=== PATIENT | male | born 1955 | race African-American/Black ===

== ENCOUNTER 2019-03-16 20:18 | Inpatient (IN) | payer MEDICAID, OTHER ==
[~2019-03-16] VITALS: Ht 175.3 cm; Wt 62.1 kg
--- NOTE | 2019-03-16 21:02 | NUR ---
ED Nurse Note: Patient presents with complaints of headache and weakness, pain level 8-9/10. patient is calm, appears relaxed and vital signs are stable and documented. blood drawn and sent to lab. Will continue to monitor.
[2019-03-16 21:07] VITALS: BP 177/56
--- NOTE | 2019-03-16 21:07 | NUR ---
ED Nurse Note: Patient went down for CT.
--- NOTE | 2019-03-16 21:08 | Emergency Room Report ---
History of Present Illness General Chief Complaint: Generalized Weakness Source: Patient Present Illness HPI Patient is a 63-year-old male presented after increased generalized weakness. Patient reports having increased diarrhea over the past few days. He reports having increased bilateral lower extremity weakness. He denies any bloody stools. He states that he has been having normal urination. He states that he feels weak all over for the past 2 to 3 days. He denies any fever. He had not been having any severe headache. He denies prior medical history other than hypertension. Allergies: Coded Allergies: No Known Allergies (Unverified , 03/16/19) Patient History Past Medical History: see triage record Reviewed Nursing Documentation: PMH: Agreed; PSxH: Agreed Nursing Documentation-PMH Hx Hypertension: Yes Review of Systems All Other Systems: negative except mentioned in HPI Physical Exam Vital Signs Date Time Temp Pulse Resp B/P (MAP) Pulse Ox O2 Delivery O2 Flow Rate FiO2 03/16/19 20:24 97.9 84 16 172/107 (128) 97 Room Air Sp02 EP Interpretation: reviewed, normal General Appearance: normal inspection, well appearing, no apparent distress, alert, GCS 15 Head: atraumatic ENT: normal ENT inspection, hearing grossly normal, normal voice Neck: normal inspection, full range of motion, supple, no bony tend Respiratory: normal inspection, lungs clear, normal breath sounds, no respiratory distress, no retraction, no wheezing Cardiovascular #1: regular rate, rhythm, no edema Gastrointestinal: normal inspection, normal bowel sounds, non tender, soft, no guarding, no hernia Genitourinary: no CVA tenderness Musculoskeletal: normal inspection, back normal, normal range of motion Neurologic: normal inspection, alert, oriented x3, responsive, 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 Differential diagnosis include was not limited to electrolyte abnormality, CVA, myasthenia gravis, Guillain-Ren among others. Because of complexity of patient's case laboratory testing and imaging studies were ordered. CT imaging of the head read by radiology showed post surgical changes without evident fracture or intracranial hemorrhage. Patient's electrolytes were noted be unremarkable. Patient was noted to have some diffuse weakness. EKG interpreted by me showed normal sinus rhythm without acute ST or T wave changes. Patient was started on IV hydration.Dr. Alton Brady was contacted for inpatient management due to panel physician Laboratory Tests Test 03/16/19 21:00 03/16/19 22:00 03/17/19 05:10 White Blood Count 7.5 K/UL (4.8-10.8) Red Blood Count 4.70 M/UL (4.70-6.10) Hemoglobin 12.7 G/DL (14.2-18.0) L Hematocrit 40.1 % (42.0-52.0) L Mean Corpuscular Volume 85 FL (80-99) Mean Corpuscular Hemoglobin 27.0 PG (27.0-31.0) Mean Corpuscular Hemoglobin Concent 31.7 G/DL (32.0-36.0) L Red Cell Distribution Width 13.4 % (11.6-14.8) Platelet Count 271 K/UL (150-450) Mean Platelet Volume 6.3 FL (6.5-10.1) L Neutrophils (%) (Auto) 53.7 % (45.0-75.0) Lymphocytes (%) (Auto) 34.9 % (20.0-45.0) Monocytes (%) (Auto) 7.9 % (1.0-10.0) Eosinophils (%) (Auto) 2.2 % (0.0-3.0) Basophils (%) (Auto) 1.3 % (0.0-2.0) Sodium Level 144 MMOL/L (136-145) 142 MMOL/L (136-145) Potassium Level 3.6 MMOL/L (3.5-5.1) 3.3 MMOL/L (3.5-5.1) L Chloride Level 108 MMOL/L (98-107) H 108 MMOL/L (98-107) H Carbon Dioxide Level 29 MMOL/L (21-32) 28 MMOL/L (21-32) Anion Gap 7 mmol/L (5-15) 6 mmol/L (5-15) Blood Urea Nitrogen 21 mg/dL (7-18) H 15 mg/dL (7-18) Creatinine 1.3 MG/DL (0.55-1.30) 1.0 MG/DL (0.55-1.30) Estimate Glomerular Filtration Rate > 60 mL/min (>60) > 60 mL/min (>60) Glucose Level 112 MG/DL (74-106) H 91 MG/DL (74-106) Calcium Level 9.4 MG/DL (8.5-10.1) 8.5 MG/DL (8.5-10.1) Total Bilirubin 0.3 MG/DL (0.2-1.0) 0.5 MG/DL (0.2-1.0) Aspartate Amino Transferase (AST) 22 U/L (15-37) 18 U/L (15-37) Alanine Aminotransferase (ALT) 22 U/L (12-78) 18 U/L (12-78) Alkaline Phosphatase 75 U/L (46-116) 65 U/L (46-116) Troponin I 0.000 ng/mL (0.000-0.056) Total Protein 6.7 G/DL (6.4-8.2) 5.8 G/DL (6.4-8.2) L Albumin 4.1 G/DL (3.4-5.0) 3.5 G/DL (3.4-5.0) Globulin 2.6 g/dL 2.3 g/dL Albumin/Globulin Ratio 1.6 (1.0-2.7) 1.5 (1.0-2.7) Lipase 421 U/L (73-393) H Thyroid Stimulating Hormone (TSH) 1.098 uiU/mL (0.358-3.740) Urine Color Pale yellow Urine Appearance Clear Urine pH 6.5 (4.5-8.0) Urine Specific Unity 1.015 (1.005-1.035) Urine Protein Negative (NEGATIVE) Urine Glucose (UA) Negative (NEGATIVE) Urine Ketones Negative (NEGATIVE) Urine Blood Negative (NEGATIVE) Urine Nitrite Negative (NEGATIVE) Urine Bilirubin Negative (NEGATIVE) Urine Urobilinogen Normal MG/DL (0.0-1.0) Urine Leukocyte Esterase Negative (NEGATIVE) Urine RBC 0-2 /HPF (0 - 0) H Urine WBC 0 /HPF (0 - 0) Urine Squamous Epithelial Cells Occasional /LPF Urine Bacteria Occasional /HPF (NONE) Hemoglobin A1c 6.1 % (4.3-6.0) H Magnesium Level 1.9 MG/DL (1.8-2.4) Triglycerides Level 65 MG/DL (30-150) Cholesterol Level 188 MG/DL (< 200) LDL Cholesterol 118 mg/dL (<100) H HDL Cholesterol 55 MG/DL (40-60) Cholesterol/HDL Ratio 3.4 (3.3-4.4) Last Vital Signs Date Time Temp Pulse Resp B/P (MAP) Pulse Ox O2 Delivery O2 Flow Rate FiO2 03/16/19 20:24 97.9 84 16 172/107 (128) 97 Room Air Status: improved Disposition: ADMITTED INPATIENT Condition: Stable Referrals: [facility],REFERRING (PCP) Nitin Solis MD Mar 16, 2019 21:08
[2019-03-16 21:11] LABS: BASOPHILS % (AUTO) 1.3 % (0.0-2.0); EOSINOPHILS % (AUTO) 2.2 % (0.0-3.0); HEMATOCRIT 40.1 % (42.0-52.0); HEMOGLOBIN 12.7 G/DL (14.2-18.0); LYMPHOCYTES % (AUTO) 34.9 % (20.0-45.0); MEAN CORPUSCULAR VOLUME 85 FL (80-99); MONOCYTES % (AUTO) 7.9 % (1.0-10.0); NEUTROPHILS % (AUTO) 53.7 % (45.0-75.0); PLATELET COUNT 271 K/UL (150-450); RED CELL DISTRIBUTION WIDTH 13.4 % (11.6-14.8); WHITE BLOOD COUNT 7.5 K/UL (4.8-10.8)
[2019-03-16 21:22] LABS: ANION GAP 7 mmol/L (5-15); BLOOD UREA NITROGEN 21 mg/dL (7-18); CALCIUM 9.4 MG/DL (8.5-10.1); CARBON DIOXIDE 29 MMOL/L (21-32); CHLORIDE 108 MMOL/L (98-107); CREATININE 1.3 MG/DL (0.55-1.30); POTASSIUM 3.6 MMOL/L (3.5-5.1); SODIUM 144 MMOL/L (136-145)
[2019-03-16 21:35] LABS: ALANINE AMINOTRANSFERASE 22 U/L (12-78); ALBUMIN 4.1 G/DL (3.4-5.0); ALBUMIN/GLOBULIN RATIO 1.6 (1.0-2.7); ALKALINE PHOSPHATASE 75 U/L (46-116); ASPARTATE AMINO TRANSFERASE 22 U/L (15-37); BILIRUBIN,TOTAL 0.3 MG/DL (0.2-1.0)
--- NOTE | 2019-03-16 21:47 | Diagnostic Imaging Report ---
EXAM: CT Head Without Intravenous Contrast CLINICAL HISTORY: PAIN TECHNIQUE: Axial computed tomography images of the head/brain without intravenous contrast. CTDI is 70.4 mGy and DLP is 1397 mGy-cm. One or more of the following dose reduction techniques were used: automated exposure control, adjustment of the mA and/or kV according to patient size, use of iterative reconstruction technique. COMPARISON: No relevant prior studies available. FINDINGS: No intracranial hemorrhage, abnormal intra- or extra-axial collections or parenchymal lesions are seen. Postoperative changes noted right frontal medhat hole craniotomy. There are involutional changes with prominence of the sulci, basal cisterns and ventricles. Scattered white matter hypoattenuations are present, likely from small vessel disease. The saldivar-white differentiation is preserved. No evidence of mass effect, midline shift, or edema. The osseous structures are unremarkable. The visualized portions of the paranasal sinuses are clear. Mastoids IMPRESSION: 1. No acute intracranial process. .
--- NOTE | 2019-03-16 21:48 | NUR ---
ED Nurse Note: Patient is relaxing with no complaints, attempting to provide a urine sample.
[2019-03-16 22:21] LABS: APPEARANCE,URINE CLEAR; BILIRUBIN, URINE NEGATIVE (NEGATIVE); COLOR,URINE PALE YELLOW; GLUCOSE, URINE (UA) NEGATIVE (NEGATIVE); KETONES,URINE NEGATIVE (NEGATIVE); LEUKOCYTE ESTERASE ,URINE NEGATIVE (NEGATIVE); NITRITE,URINE NEGATIVE (NEGATIVE); PH,URINE 6.5 (4.5-8.0); PROTEIN,URINE NEGATIVE (NEGATIVE); UROBILINOGEN,URINE NORMAL MG/DL (0.0-1.0)
--- NOTE | 2019-03-16 22:50 | NUR ---
NURSE NOTES: Received a report from DARLEEN Elizabeth. Awaiting for pt's arrival.
--- NOTE | 2019-03-16 22:52 | NUR ---
ED Nurse Note: Patient tolerating medication and fluid well. will continue to monitor.
[2019-03-16 22:57] VITALS: BP 160/106
--- NOTE | 2019-03-16 22:59 | NUR ---
ED Nurse Note: Called and gave report to Suly RN. Belonging sheet done, patient will be transported to floor in 10 minutes to allow for Suly RN to prepare the room, per request.
--- NOTE | 2019-03-16 23:15 | NUR ---
ED Nurse Note: Patient transported to floor by [facility] without incident.
--- NOTE | 2019-03-16 23:15 | NUR ---
NURSE NOTES: Pt arrived in the unit. AAOX4. Able to make needs known. On room air. C/o headache, rated it 8/10. Will give pain med once there's an order. IV site is patent and intact. Skin is intact. Belongings checked and signed by the patient. Bed in lowest position. Bed alarm is on. Call light within reach. Will continue to monitor.
[2019-03-16 23:30] VITALS: BP 186/137
[2019-03-16] MEDS ORDERED: Morphine Sulfate 4mg/ml Inj (IV USE ONLY) IVP PRN (23:30)
[2019-03-16] MEDS ORDERED: Morphine Sulfate 2mg/ml Inj(IV/IM USE ONLY) IVP PRN (23:30)
[2019-03-16] MEDS ORDERED: Zolpidem 5mg tab ORAL PRN (23:30)
[2019-03-16] MEDS: metroNIDAZOLE 500mg tab ORAL SCH (23:52)
[2019-03-16] MEDS: Ciprofloxacin 500mg tab ORAL SCH (23:52)
[2019-03-17] VITALS (9 sets, daily range): BP systolic 140–167; BP diastolic 97–112
[2019-03-17] MEDS: 1/2NS w/KCl 20mEq 1000ml 1,000 ML IV SCH ×3 (00:19→18:27)
[2019-03-17] MEDS ORDERED: NKM (01:46)
[2019-03-17] MEDS: metroNIDAZOLE 500mg tab ORAL SCH ×3 (05:42→21:39)
--- NOTE | 2019-03-17 07:00 | NUR ---
HAND-OFF: Report given to Darrius Nichols RN.
[2019-03-17 07:43] LABS: ALANINE AMINOTRANSFERASE 18 U/L (12-78); ALBUMIN 3.5 G/DL (3.4-5.0); ALBUMIN/GLOBULIN RATIO 1.5 (1.0-2.7); ALKALINE PHOSPHATASE 65 U/L (46-116); ANION GAP 6 mmol/L (5-15); ASPARTATE AMINO TRANSFERASE 18 U/L (15-37); BILIRUBIN,TOTAL 0.5 MG/DL (0.2-1.0); BLOOD UREA NITROGEN 15 mg/dL (7-18); CALCIUM 8.5 MG/DL (8.5-10.1); CARBON DIOXIDE 28 MMOL/L (21-32); CHLORIDE 108 MMOL/L (98-107); CHOLESTEROL 188 MG/DL (< 200); HDL CHOLESTEROL 55 MG/DL (40-60); POTASSIUM 3.3 MMOL/L (3.5-5.1); SODIUM 142 MMOL/L (136-145); TRIGLYCERIDES 65 MG/DL (30-150)
[2019-03-17] MEDS: Ciprofloxacin 500mg tab ORAL SCH ×2 (08:16→20:37)
--- NOTE | 2019-03-17 10:00 | NUR ---
NURSE NOTES: PT AXOX3, RAMBLING SPEECH. AMBULATORY WITH STEADY GAIT. PT EDUCATED ON FALL PRECAUTIONS AND HOW TO USE CALL LIGHT FOR ASSISTANCE. PT VERBALIZED UNDERSTANDING. CALL LIGHT WITHIN REACH. WILL CONTINUE TO MONITOR.
--- NOTE | 2019-03-17 14:06 | NUR ---
NURSE NOTES: DR. Osmin BROWN AT BEDSIDE AND MADE AWARE OF PT'S ELEVATED BP. NO NEW ORDERS.
--- NOTE | 2019-03-17 14:27 | History & Physical ---
History and Physical History & Physicial HP dictated #[id number] Alton Brady MD Mar 17, 2019 14:27
--- NOTE | 2019-03-17 18:45 | History and Physical Report ---
DATE OF ADMISSION: 03/16/2019 CHIEF COMPLAINT: The patient was brought in for increased generalized weakness. HISTORY OF PRESENT ILLNESS: This is a 63-year-old, male, who is a poor historian. Apparently he came to the ER for increased generalized weakness and also he had some diarrhea although the nurse tells me that he has not had any bowel movements since admission. The patient was admitted for further workup. PAST MEDICAL HISTORY: Remarkable for history of hypertension. MEDICATIONS: Reviewed in the EMR. SOCIAL HISTORY: No history of smoking or alcohol abuse. ALLERGIES: No known drug allergies. REVIEW OF SYSTEMS: Noncontributory. PHYSICAL EXAMINATION: GENERAL: The patient is a 63-year-old male, in no acute distress. VITAL SIGNS: Blood pressure 151/105, pulse 57, respiratory rate 16, temperature 98.1. HEENT: Bertrand conjunctivae. Anicteric sclerae. NECK: Supple . LUNGS: Clear to auscultation. HEART: S1 and S2 without murmurs or rubs. ABDOMEN: Soft, nontender. EXTREMITIES: No cyanosis or edema. LABORATORY FINDINGS: CBC shows WBC of 7.5, hematocrit 40.1, hemoglobin is 12.7, platelets 271,000. Chemistry panel shows serum sodium of 142, potassium 3.3, chloride 108, CO2 of 28, BUN 17, creatinine 1. UA is negative. Hemoglobin A1c 6.1. ASSESSMENT: This is a 63-year-old male, who was admitted with generalized weakness, reported history of diarrhea, possible diagnosis of acute gastroenteritis and volume depletion. The patient is also hypokalemic which goes along with the history of diarrhea. PLAN: The patient will be hydrated with IV fluids with initial potassium. Physical therapy will be ordered. The patient was started on empiric antibiotics. Stool for C. difficile will be checked and further adjustment will be made in the patient's regimen. Alton Brady M.D. DR: Dinesh JOB#: [id number] CC:
--- NOTE | 2019-03-17 19:03 | NUR ---
HAND-OFF: Report given to Wendy CARMONA RN.
--- NOTE | 2019-03-17 19:30 | NUR ---
NURSE NOTES: PREVIOUS AM NURSE, MAVIS, ENDORSED THAT DR. Jessica BROWN WAS MADE AWARE OF PATIENT'S HIGH SBP AND DBP WHEN MD CAME TO VISIT THE PATIENT, BUT STILL NO NEW ORDERS WERE GIVEN. WILL CONTINUE TO MONITOR.
--- NOTE | 2019-03-17 19:36 | NUR ---
NURSE NOTES: Received report from DARELEN Brenner. Patient is on the bed. Patient is alert, awake, and verbally responsive to make needs known. Patient is breathing unlabored and evenly without signs of distress, discomfort, or SOB noted. No pain is noted at this time. Patient's bed is placed at the lowest. Call light placed within reach for any assistance needed. Will continue to monitor and provide care as ordered.
--- NOTE | 2019-03-17 23:01 | NUR ---
NURSE NOTES: Patient's left AC 22g IV dressing was falling apart causing catheter to be in uncomfortable position for the patient. Dressing change was provided. Old dressing was removed and new Tegaderm was placed. Skin around the IV site was warm to touch, dry, without redness or signs of infiltration. IV is patent with good blood return and no resistance while flushing. Disconnected IV fluid was reconnected and running as ordered. Maintained sterility of the connectors. Explained procedure before performing and patient verbalized comfort after the dressing change. Call light was placed within reach and encouraged to press whenever assistance is needed.
[2019-03-18] VITALS: BP 169/106
--- NOTE | 2019-03-18 00:31 | NUR ---
NURSE NOTES: Found patient pulled out the IV during the hourly round. Patient pulled out the LAC 22g IV. Patient does not know why he pulled it out and said "I don't know what I did, it was stupid". Skin around the previous IV site was clean and dry. Explained patient that new IV has to be inserted for ordered fluid. Patient acknowledged and confirmed okay. Inserted new 22g IV on the patient's left forearm. IV site intact, dry, and clean. IV is patent with good blood return and no resistance when flushing. Iv site is covered with the kerlix for protection. Patient tolerated the procedure well. Ordered IV fluid is reconnected and running as ordered. Call light placed within reach and bed set to lowest level. Will continue to monitor.
[2019-03-18 04:00] VITALS: BP 159/98
[2019-03-18] MEDS: 1/2NS w/KCl 20mEq 1000ml 1,000 ML IV SCH ×3 (04:49→23:59)
--- NOTE | 2019-03-18 04:54 | NUR ---
NURSE NOTES: Patient is confused about the IV. Patient pulls it out when he goes to the restroom. Patient verbalized understanding when re-educated to call the call light when he needs assistance. Patient pulled out the new inserted IV. No trauma noted on the skin. Explained patient about the need for new IV insertion. Patient verbalized understanding. New IV has been inserted. 22 g IV on the left upper arm running 1/2 NS with KCL 20 mEq at 100 cc/hr. New IV site is intact, patent, and clean. Applied Kerlix to protect the IV site. Patient tolerated the procedure well. Reminded patient multiple times to call the call light and wait for help when going to the restroom. Patient verbalized understanding. Call light placed within reach. Bed placed at the lowest level with HOB elevated for patient safety. Will continue to monitor.
[2019-03-18] MEDS: metroNIDAZOLE 500mg tab ORAL SCH ×3 (05:52→21:22)
--- NOTE | 2019-03-18 06:41 | NUR ---
NURSE NOTES: Patient attempted to make a bowel movement, but patient did not have one during current shift. No diarrhea noted. Was not able to collect a stool sample for c-diff screening. Will follow up. Will continue to monitor.
--- NOTE | 2019-03-18 07:00 | NUR ---
Nurse Note Handoff received from DARLEEN Leal.
--- NOTE | 2019-03-18 07:10 | NUR ---
NURSE NOTES: Patient is now confused, only alert to name and year. Patient states he doesn't know where he is and how he got to the hospital. Patient forgot having a conversation with the nurse. Nurse reoriented patient back to room. Patient was moved closer to nursing station room 412-1. Belongings checked. Nurse left message for Dr. Jessica Brady, awaiting response. Will endorse.
--- NOTE | 2019-03-18 07:30 | NUR ---
HAND-OFF: Report given to DARLEEN Cardona and DARLEEN Hua. Patient in stable condition.
[2019-03-18 08:00] VITALS: BP 160/85
[2019-03-18 08:07] LABS: ANION GAP 11 mmol/L (5-15); BLOOD UREA NITROGEN 9 mg/dL (7-18); CALCIUM 9.4 MG/DL (8.5-10.1); CARBON DIOXIDE 24 MMOL/L (21-32); CHLORIDE 106 MMOL/L (98-107); CREATININE 1.1 MG/DL (0.55-1.30); PHOSPHORUS 3.1 MG/DL (2.5-4.9); POTASSIUM 3.7 MMOL/L (3.5-5.1); SODIUM 141 MMOL/L (136-145)
[2019-03-18] MEDS: Ciprofloxacin 500mg tab ORAL SCH ×2 (08:28→21:22)
[2019-03-18] MEDS: LORazepam Inj 2mg/ml 1ml IM SCH ×4 (08:30→09:08)
[2019-03-18] MEDS: Haloperidol 5mg/ml Inj IM SCH ×2 (08:30→08:45)
--- NOTE | 2019-03-18 08:30 | NUR ---
NURSE NOTES: one time scheduled Ativan and Haloperidol scheduled for 8:30 were not administered due to mixing of Ativan and Haloperidol in the same syringe, medications were therefore wasted and witnessed by Dulce MOREJON and DARLEEN Marina.
[2019-03-18] MEDS ORDERED: Haloperidol 5mg/ml Inj IM SCH (09:00)
--- NOTE | 2019-03-18 10:09 | NUR ---
NURSE NOTES: One time order for Ativan and Haldol scheduled for 9AM were not given. Patients brother arrived to the hospital and was able to explain to the patient the benefits of staying in the hospital. The patient is now fully cooperative and did not require the Ativan or Haldol to be administered.
[2019-03-18 11:20] VITALS: BP 162/89
--- NOTE | 2019-03-18 12:40 | NUR ---
NURSE NOTES: Spoke with Dr. Brady regarding HTN and received NNO. will continue to monitor
--- NOTE | 2019-03-18 13:41 | General Progress Note ---
Assessment/Plan Problem List: (1) Acute gastroenteritis ICD Codes: K52.9 - Noninfective gastroenteritis and colitis, unspecified SNOMED: 19228329 (2) Episode of generalized weakness ICD Codes: R53.1 - Weakness SNOMED: 09702697 Assessment/Plan: IVF PRN sedation follow labs Subjective Allergies: Coded Allergies: No Known Allergies (Unverified , 03/16/19) Subjective feels better Objective Last 24 Hour Vital Signs Date Time Temp Pulse Resp B/P (MAP) Pulse Ox O2 Delivery O2 Flow Rate FiO2 03/18/19 11:22 98.0 03/18/19 11:20 98.0 83 18 162/89 (113) 96 03/18/19 09:00 Room Air 03/18/19 08:00 98.2 77 18 160/85 (110) 97 03/18/19 04:00 98.4 63 18 159/98 (118) 97 03/18/19 00:00 97.9 65 18 169/106 (127) 97 03/17/19 21:00 Room Air 03/17/19 20:00 97.6 64 16 157/105 (122) 98 03/17/19 15:46 98.2 62 17 161/104 (123) 98 Intake and Output 03/17/19 03/18/19 19:00 07:00 Intake Total 3100 ml 1800 ml Balance 3100 ml 1800 ml Intake Oral 2000 ml 800 ml IV Total 1100 ml 1000 ml # Voids 3 3 Laboratory Tests 03/18/19 05:26: Sodium Level 141, Potassium Level 3.7, Chloride Level 106, Carbon Dioxide Level 24, Anion Gap 11, Blood Urea Nitrogen 9, Creatinine 1.1, Estimat Glomerular Filtration Rate > 60, Glucose Level 97, Calcium Level 9.4, Phosphorus Level 3.1 , Magnesium Level 1.9 Height (Feet): 5 Height (Inches): 9.00 Weight (Pounds): 150 Cardiovascular: normal rate Respiratory/Chest: lungs clear Edema: no edema noted Generalized Alton Brady MD Mar 18, 2019 13:41
[2019-03-18 16:00] VITALS: BP 138/93
--- NOTE | 2019-03-18 17:14 | NUR ---
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 ACUTE GASTROENTERITIS VS: BP 172/107, P 84, T 97.8, RR 16, SpO2 97 H&H 12.7/40.1,BUN 21 K 3.3, A1c 6.1 IS:MAGNESIUIM SULFATE 100ml IVPB NS x 500ml IV ADMITTED TO MED/SURG DCP: RETURN HOME Addendum: 03/18/19 at 1720 by Arabella Salter LVN ABOVE REVIEW IS FOR 03/17
--- NOTE | 2019-03-18 17:20 | NUR ---
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 EPISODE OF GENERALIZED WEAKNESS VS: BP 169/106,P 65, T 98.0, RR 18, SpO2 96 IS:TYLENOL 20mg FLAGYL 500mg CIPROFLOXACIN 500mg MORPHINE SULFATE 2mg IVP MED/SURG STATUS
--- NOTE | 2019-03-18 19:34 | NUR ---
HAND-OFF: Report given to DARLEEN Lam.
--- NOTE | 2019-03-18 19:45 | NUR ---
NURSE NOTES: Received a report from DARLEEN Cardona. Pt is confused. He wanted to leave the hospital. Carole MOREJON explained to the pt that he needs to stay here to treat him. Pt agreed to stay and verbalized understanding. On room air. No c/o pain/discomfort. IV site is patent and intact. Bed in lowest position. Call light within reach. Will continue to monitor.
[2019-03-18 20:00] VITALS: BP 167/115
--- NOTE | 2019-03-18 21:30 | NUR ---
NURSE NOTES: Patient noted for elevated SBP above 160. MD made aware previously and no new order was given. Patient still shows elevated SBP above 160, but asymptomatic. Patient is breathing evenly and unlabored without any signs of distress. Patient is awake, verbally responsive, but still confused. No change in condition noted. Bed placed at the lowest with alarm, brake, and side rails up x 2 for safety measures. Call light placed within reach. Patient was reeducated and reinforced to press the call light whenever he needs any assistance. Urinal was provided to him because he attempts to pull out the IV whenever he goes to the restroom. Will monitor more frequently.
[2019-03-18] MEDS ORDERED: clonazePAM 0.5mg tab ORAL PRN (23:00)
[2019-03-19] VITALS (7 sets, daily range): BP systolic 155–192; BP diastolic 11–133
--- NOTE | 2019-03-19 00:45 | Consultation ---
DATE OF CONSULTATION: 03/18/2019 CONSULTING PHYSICIAN: Helen Ocampo M.D. HISTORY OF PRESENT ILLNESS: This is a 63-year-old black male with a history of multiple medical problems including hypertension and history of mental illness who has been admitted to the hospital due to increased generalized weakness. The patient was severely agitated this morning, attempted to leave against medical advice. He was disorganized and was unable to answer the questions appropriately. He received a shot for Haldol and Ativan; however, he calmed down and the shot was not given. During the evaluation, he was somewhat uncooperative. He knew where he was and knew the year; however, was unable to answer the question in a rational manner. We discussed with the patient and the patient agreed to remain in the hospital and Dr. Brady discharging him. PAST PSYCHIATRIC HISTORY: He denied any history of psychiatric illness, however he is a poor historian and unreliable. PAST MEDICAL HISTORY: Hypertension. ALLERGIES: No known drug allergies. SUBSTANCE ABUSE HISTORY: He denied any illicit drug use or alcohol. MENTAL STATUS EXAMINATION: The patient was alert, oriented times self and place. Mood was agitated. Affect was blunted, congruent with mood. Thought process is disorganized. Thought content, no suicidal or homicidal ideation. Memory was impaired. Insight and judgment non-existent. ASSESSMENT: [place] I Psychotic disorder, not otherwise specified. [place] II Deferred. [place] III As above. [place] IV Low. [place] V 20. PLAN: 1. The patient will be started on Seroquel 100 mg at bedtime. 2. Ativan p.r.n. 3. The patient may not leave against medical advice as he lacks capacity. Helen Ocampo M.D. DR: TERESA JOB#: [id number] CC:
--- NOTE | 2019-03-19 05:10 | NUR ---
NURSE NOTES: Patient pulled out the IV on left upper arm. Skin is intact. Patient does not know why he pulled it out. Explained patient that a new IV needs to be inserted to run a ordered fluid. Patient confirmed that he understands and said okay. Inserted new 22 g IV on left forearm. IV site intact, dry, and clean. IV site patent with good blood return and no resistance when flushing. Reeducated and reinforced patient not to pull out the IV and why IV site is needed at this time. New IV site currently running fluids as ordered. Patient confirmed understanding verbally. Patient tolerated the procedure well. Patient breathing unlabored and evenly without signs of distress at this time. Patient did not complained of pain nor signs of pain noted at this time. Call light placed within reach. Bed on lowest level with alarm, brake, and side rails up x 2 for safety measure. Reinforced patient to press the call light for any assistance needed. Will continue to monitor and provide care as ordered.
[2019-03-19] MEDS: metroNIDAZOLE 500mg tab ORAL SCH ×3 (05:26→21:16)
--- NOTE | 2019-03-19 07:05 | NUR ---
HAND-OFF: Report given to DARLEEN Loera.
--- NOTE | 2019-03-19 07:58 | NUR ---
NURSE NOTES: Patient is alert and oriented,respirations are unlabored.IV fluids infusing as ordered.Patient sitting up in bed ,ate breakfast.Bed alrm is on,call light within reach.
[2019-03-19] MEDS: Ciprofloxacin 500mg tab ORAL SCH ×2 (08:54→21:16)
--- NOTE | 2019-03-19 09:48 | NUR ---
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 UNCONTROLLED HYPERTENSION VS: BP 163/120, P 96, T 97.0, RR 20, SpO2 98 IS:PEPCID 20mg CIPROFLOXACIN 500mg FLAGYL 500mg MED/SURG STATUS
--- NOTE | 2019-03-19 11:54 | NUR ---
INSURANCE UPDATED CLINICALS HAVE BEEN FAXED TO: [facility] PLEASE FAX THE REVIEW AND CLINICAL TO [facility]: [phone] PH: [phone]
[2019-03-19] MEDS: 1/2NS w/KCl 20mEq 1000ml 1,000 ML IV SCH (12:56)
--- NOTE | 2019-03-19 16:45 | NUR ---
NURSE NOTES: Patient pulled out IV and stated he is ready to go home.Patient blood pressure 174/117,notified Dr Jessica Hair with order received to start patient on Amlodipine 5mg po daily . Teaching given to patient on taking BP medication and monitoring his blood pressure,patient then agree to stay,DR Brady will see patient tomorrow.
--- NOTE | 2019-03-19 17:45 | Progress Note ---
DATE: 03/19/2019 SUBJECTIVE: The patient is calmer, more directable, still does not know the date. Poor insight and judgment into his mental condition. The patient is not attempting to leave AMA and following the staff's direction. MENTAL STATUS EXAMINATION: The patient is alert, oriented times self, place, and situation. Mood is dysphoric. Affect is constricted. Congruent with mood. Thought process is concrete. Thought content, no suicidal or homicidal ideation. ASSESSMENT: 1. The patient will be continued with current medication. 2. The patient may not leave AMA. Helen Ocampo M.D. DR: Ambrose JOB#: [id number] CC:
--- NOTE | 2019-03-19 19:39 | NUR ---
NURSE NOTES: Received report from DARLEEN Loera. Patient is awake, verbally responsive, with confusion. Patient pulled out his IV. Skin intact. Patient is breathing unlabored and evenly on room air without signs of distress noted. No signs of pain noted at this time. Patient's bed is placed at the lowest level with brakes and side rails up x 2 for safety. Call light placed within reach and reinforced to press whenever assistance is needed. Will continue to monitor and provide care as ordered.
--- NOTE | 2019-03-19 19:42 | NUR ---
HAND-OFF: Report given to NABEEL PANG RN.
--- NOTE | 2019-03-19 20:37 | NUR ---
NURSE NOTES: Dr. Brady came to see the patient. Dr. Brady discontinued the fluid order 1/2 NS with 20 mEq KCL 100 cc/hr and talked with patient about possible discharge plan for tomorrow. No IV site access, MD aware. Patient has high blood pressure 192/133, MD made aware with no new orders. Patient is asymptomatic, breathing evenly and unlabored, with no signs of distress. Will continue to monitor and provide care as ordered.
--- NOTE | 2019-03-19 22:16 | General Progress Note ---
Assessment/Plan Problem List: (1) Acute gastroenteritis ICD Codes: K52.9 - Noninfective gastroenteritis and colitis, unspecified SNOMED: 88416833 (2) Episode of generalized weakness ICD Codes: R53.1 - Weakness SNOMED: 85996086 Assessment/Plan: DC IVF PT Dc tomorrow Subjective Allergies: Coded Allergies: No Known Allergies (Unverified , 03/16/19) Subjective feels better Objective Last 24 Hour Vital Signs Date Time Temp Pulse Resp B/P (MAP) Pulse Ox O2 Delivery O2 Flow Rate FiO2 03/19/19 21:00 Room Air 03/19/19 20:00 97.7 83 17 192/133 (152) 97 03/19/19 16:58 105 174/117 03/19/19 16:09 98.0 95 20 165/112 (129) 99 03/19/19 12:06 98.4 68 20 168/109 (128) 98 03/19/19 09:49 Room Air 03/19/19 08:49 72 155/111 (126) 03/19/19 08:03 98.2 88 20 163/120 (134) 98 03/19/19 04:00 97.0 96 20 161/110 (127) 100 03/19/19 00:00 97.8 70 18 160/100 (120) 99 Intake and Output 03/18/19 03/19/19 19:00 07:00 Intake Total 1380 ml 1976 ml Output Total 1025 ml Balance 1380 ml 951 ml Intake Oral 680 ml 1100 ml IV Total 700 ml 876 ml Output Urine Total 1025 ml # Voids 3 Height (Feet): 5 Height (Inches): 9.00 Weight (Pounds): 150 Cardiovascular: normal rate Respiratory/Chest: lungs clear Edema: no edema noted Alton Posada MD Mar 19, 2019 22:16
--- NOTE | 2019-03-19 23:25 | NUR ---
NURSE NOTES: Patient became confused and anxious when he was awake to go to the restroom. He started packing up his belongs such as paperworks that he has in a belonging bag. He said this is not the right place for him and that he has to go home right now. After multiple attempts to calm the patient down through talk therapy, patient wanted medication to calm him down and that he still felt that this was not the right place to be. Prescribed medication for anxiety was given and the purpose of the medication was explained to the patient. Patient took the medication and agreed to go back to bed for now. Call light was left within reach for patient to press whenever he needed any help. Bed was placed at the lowest with alarm, brakes, and side rails up x2 for safety. Will continue to monitor and provide care as ordered.
[2019-03-20] VITALS: BP 127/88
[2019-03-20 04:00] VITALS: BP 128/83
[2019-03-20] MEDS: metroNIDAZOLE 500mg tab ORAL SCH (05:39)
--- NOTE | 2019-03-20 07:11 | NUR ---
HAND-OFF: Report given to DARLEEN Loera. Patient in stable condition.
--- NOTE | 2019-03-20 07:35 | NUR ---
NURSE NOTES: Patient is awake and alert, up and doing AM care.respirations unlabored.Will monitor.
[2019-03-20 08:00] VITALS: BP 133/92
[2019-03-20] MEDS: Ciprofloxacin 500mg tab ORAL SCH (08:16)
--- NOTE | 2019-03-20 08:42 | NUR ---
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 GENERALIZED WEAKNESS VS: BP 133/92, P 18, T 97.5, RR 18, SpO2 97 IS:PEPCID 20mg CIPROFLOXACIN 500mg NORVASC 5mg FLAGYL 500mg MED/SURG STATUS
--- NOTE | 2019-03-20 09:29 | NUR ---
INSURANCE UPDATED CLINICALS HAVE BEEN FAXED TO: [facility] PLEASE FAX THE REVIEW AND CLINICAL TO FX: [phone] PH: [phone]
[2019-03-20 12:00] VITALS: BP 148/106
[2019-03-20] MEDS ORDERED: NORVASC5 MG ORAL (12:06)
--- NOTE | 2019-03-20 12:09 | General Progress Note ---
Assessment/Plan Problem List: (1) Acute gastroenteritis ICD Codes: K52.9 - Noninfective gastroenteritis and colitis, unspecified SNOMED: 94907238 (2) Episode of generalized weakness ICD Codes: R53.1 - Weakness SNOMED: [id number] Assessment/Plan: Al home Subjective Allergies: Coded Allergies: No Known Allergies (Unverified , 03/16/19) Subjective ok Objective Last 24 Hour Vital Signs Date Time Temp Pulse Resp B/P (MAP) Pulse Ox O2 Delivery O2 Flow Rate FiO2 03/20/19 09:00 Room Air 03/20/19 08:16 98 133/92 03/20/19 08:00 97.5 98 18 133/92 (106) 99 03/20/19 04:00 98.2 72 16 128/83 (98) 99 03/20/19 00:00 98.3 98 18 127/88 (101) 97 03/19/19 21:00 Room Air 03/19/19 20:00 97.7 83 17 192/133 (152) 97 03/19/19 16:58 105 174/117 03/19/19 16:09 98.0 95 20 165/112 (129) 99 Intake and Output 03/19/19 03/20/19 19:00 07:00 Intake Total 1080 ml 120 ml Output Total 1050 ml Balance 30 ml 120 ml Intake Oral 480 ml 120 ml IV Total 600 ml Output Urine Total 1050 ml # Voids 4 1 Height (Feet): 5 Height (Inches): 9.00 Weight (Pounds): 137 Alton Brady MD Mar 20, 2019 12:09
--- NOTE | 2019-03-20 14:18 | NUR ---
NURSE NOTES: Discharge instructions given,patient tolerated regular diet.prescription given. patient brother here to take patient home.Patient lives with brother.patient IV out.ID hospital band removed.Patient has his personal belongings.Patient accompany down to lobby.
--- NOTE | 2019-03-20 16:36 | Cardiology Report ---
APPROVED REPORT EKG Measurement Heart [id number] Normal sinus rhythm with sinus arrhythmia Left axis deviation Septal infarct, age undetermined Abnormal ECG
--- NOTE | 2019-03-20 20:00 | Progress Note ---
DATE: 03/20/2019 SUBJECTIVE: The patient is cooperative, no behavior issues at this time. Needs frequent redirection throughout the day. The patient is easily agitated. MENTAL STATUS EXAMINATION: Alert and oriented times self, place, and situation. Mood is anxious. Affect is constricted. Congruent with mood. Thought process is concrete. Thought content, no suicidal or homicidal ideation. ASSESSMENT: Stable. PLAN: 1. We will continue current medication. 2. Provide the patient with reality orientation and supportive therapy. Helen Ocampo M.D. DR: Ambrose JOB#: [id number] CC:
--- NOTE | 2019-03-21 09:10 | Discharge Summary ---
Discharge Summary Discharge Summary _ DATE OF ADMISSION: 03/16/2019 DATE OF DISCHARGE: 03/20/2019 DISCHARGED BY: Dr. Alton Brady CONSULTANTS: Dr. Helen Ocampo BRIEF HOSPITAL COURSE: Patient is a 63-year-old -[place] male, who is a poor historian. Apparently he came to ED for increased generalized weakness and also had diarrhea for the past few days. He reported increased bilateral lower extremity weakness. Denied any bloody stools. He had normal urination. He denied fever. He has medical history significant for hypertension. On evaluation at ED, blood pressure was elevated to 172/107. Blood work did not show any leukocytosis. Hemoglobin 12.7, hematocrit 40. Electrolytes were normal. BUN was elevated to 21. Creatinine normal at 1.3. LFTs were normal. This was a slightly elevated at 421. Troponin was negative. Urinalysis was essentially negative. Head CT showed postsurgical changes without evident fracture or intracranial hemorrhage. He was given IV hydration. He was then admitted for evaluation of generalized weakness, he reported history of diarrhea , possible diagnosis of acute gastroenteritis and volume depletion. He was given IV hydration. He was given potassium replacement. He was started empirically on antibiotics. Stool for C. difficile was ordered. Psychiatrist was consulted. Patient was severely agitated. He was given anxiolytics. He was diagnosed with psychotic disorder and was started on Seroquel 100 mg nightly. He was assessed he cannot leave AGAINST MEDICAL ADVICE as he lack the capacity to make medical decisions. Patient she will was more cooperative. He needed frequent redirection throughout the day. He was provided with reality orientation and supportive therapy. There was no bowel movement. Stool for C. difficile was uncollected. Potassium levels normalized. He was eventually discharged home. FINAL DIAGNOSES: Acute gastroenteritis Episode of generalized weakness Psychosis DISPOSITION: Patient was discharged home. DISCHARGE MEDICATIONS: Refer to Discharge Medication List. DISCHARGE INSTRUCTIONS: Follow-up in a week. I have been assigned to complete a discharge summary on this account, I was not involved with the patient's management.--JACKIE Clark Jacqueline Robles NP Mar 21, 2019 09:10
== END 2019-03-20 14:45 | disposition home or self-care (01) | DRG 249 ==
LOC: EMR 20:35 → 4E 21:42 → EDBEDREQ 22:54 → OBSVTOIN 23:25 → 4E 03-18 07:04
DX: K52.9 Noninfective gastroenteritis and colitis, unspecified (principal); E86.9 Volume depletion, unspecified; E87.6 Hypokalemia; I10 Essential (primary) hypertension; F99 Mental disorder, not otherwise specified; R53.1 Weakness
CPT/HCPCS: 36415; 70450; 80048; 80053; 80061; 81001; 82962; 83036; 83690; 83735; 84100; 84443; 84484; 85025; 93005; 96365; 99285

== ENCOUNTER 2019-10-06 10:43 | Emergency (ER) | payer OTHER ==
[~2019-10-06] VITALS: Ht 172.7 cm; Wt 59.0 kg
[~2019-10-06 10:43] MED LIST: NKM; NORVASC5 MG ORAL
--- NOTE | 2019-10-06 10:53 | NUR ---
ED Nurse Note: Pt ambulated to ED with c/o Boil on upper back. Pt is AOx4, VSS, on RA. Placed on bed.
[2019-10-06] MEDS ORDERED: AMLODIPINE BESY10 MG ORAL (10:55)
[2019-10-06] MEDS ORDERED: ATORVASTATIN CA20 MG ORAL (10:55)
[2019-10-06 10:57] VITALS: BP 152/90
--- NOTE | 2019-10-06 11:16 | NUR ---
ED Nurse Note: Patient is being discharged from medical care. D/C instruction given to patient. All questions were answered. Patient left ER with all his belongings.
--- NOTE | 2019-10-06 14:33 | Emergency Room Report ---
History of Present Illness General Chief Complaint: Skin Rash/Abscess Source: Patient Present Illness Allergies: Coded Allergies: No Known Allergies (Unverified , 03/16/19) Nursing Documentation-[facility] Past Medical History: No History, Except For Hx Hypertension: Yes Physical Exam Vital Signs Date Time Temp Pulse Resp B/P (MAP) Pulse Ox O2 Delivery O2 Flow Rate FiO2 10/06/19 10:49 97.5 110 18 152/90 (110) 97 Room Air Medical Decision Making Diagnostic Impression: Primary Impression: Lipoma Last Vital Signs Date Time Temp Pulse Resp B/P (MAP) Pulse Ox O2 Delivery O2 Flow Rate FiO2 10/06/19 10:57 97.5 62 18 152/90 97 Room Air Disposition: HOME, SELF-CARE Condition: Stable Referrals: [facility],REFERRING (PCP) [facility] Patient Instructions: Breast Self-Awareness, [id number] Additional Instructions: you need to followup with a surgeon as outpatient to have this lipoma removed Benito Miller MD Oct 06, 2019 14:33
== END 2019-10-06 11:16 | disposition home or self-care (01) ==
LOC: EMR 11:00
DX: D17.1 Benign lipomatous neoplasm of skin and subcutaneous tissue of trunk (principal); I10 Essential (primary) hypertension
CPT/HCPCS: 99282

== ENCOUNTER 2020-05-04 10:08 | Emergency (ER) | payer MEDICARE, MEDICAID ==
[~2020-05-04] VITALS: Ht 175.3 cm; Wt 72.6 kg
[~2020-05-04 10:08] MED LIST changes: +AMLODIPINE BESY10 MG ORAL; +ATORVASTATIN CA20 MG ORAL; +BACTRIM DS TAB1 EAC1 ORAL; +MUPIROCIN22 GM TOPIC; +TYLENOL EXTRA500 MG ORAL
[2020-05-04 10:15] VITALS: BP 114/71
--- NOTE | 2020-05-04 11:14 | Emergency Room Report ---
History of Present Illness General Chief Complaint: General Complaint Source: Patient Present Illness HPI This patient states that he has had headaches daily for many years. He states he thinks that is because of his blood pressure. He does have a blood pressure medication that he states he takes daily. Patient states he was at [facility] last night and then eloped from there because it was taking too long to be evaluated. He states that last night he also had some stomach pain. States his stomach pain has since resolved. He denies recent illness. He denies blurry vision. He denies weakness. He denies tingling or numbness. He denies weakness. He denies recent trauma. He denies neck pain. He denies chest pain or shortness of breath. He has no other complaints. Allergies: Coded Allergies: No Known Allergies (Unverified , 03/16/19) COVID-19 Screening Contact w/high risk pt: No Experienced COVID-19 symptoms?: No COVID-19 Testing performed DIRECTOR LIFE: No Patient History Past Medical History: see triage record, HTN, other - HLP Social History: Denies: smoking, alcohol use, drug use Reviewed Nursing Documentation: PMH: Agreed; PSxH: Agreed Nursing Documentation-PMH Hx Hypertension: Yes Review of Systems All Other Systems: negative except mentioned in HPI Physical Exam Vital Signs Date Time Temp Pulse Resp B/P (MAP) Pulse Ox O2 Delivery O2 Flow Rate FiO2 05/04/20 10:15 97.5 89 15 114/71 99 Room Air Sp02 EP Interpretation: reviewed, normal General Appearance: no apparent distress, alert, GCS 15, non-toxic Head: normocephalic, atraumatic Eyes: bilateral eye normal inspection, bilateral eye PERRL ENT: hearing grossly normal, normal pharynx, no angioedema, normal voice Neck: full range of motion, supple/symm/no masses Respiratory: chest non-tender, lungs clear, normal breath sounds, no respiratory distress, no retraction, no accessory muscle use, speaking full sentences Cardiovascular #1: regular rate, rhythm, no edema Gastrointestinal: no rebound Rectal: deferred Musculoskeletal: back normal, normal range of motion, gait/station normal, non- tender Neurologic: alert, motor strength/tone normal, oriented x3, sensory intact, responsive, speech normal Psychiatric: judgement/insight normal, memory normal, mood/affect normal, no suicidal/homicidal ideation Reflexes: 3+ bicep (R), 3+ bicep (L), 3+ tricep (R), 3+ tricep (L), 3+ knee (R) , 3+ knee (L) Skin: no rash, normal color Medical Decision Making Diagnostic Impression: Primary Impression: Headache ER Course This patient is a clinical presentation consistent with chronic headaches. Because of the patient's age, I did obtain a CT head to rule out any obvious intracranial pathology. This was unremarkable. There were no red flags on physical exam or history. I do not suspect meningitis, intracranial bleed, sinusitis. The patient's blood pressure was within normal limits. I did not feel that any further evaluation emergency department was indicated at this time. The patient was instructed to see his primary care physician for a more routine evaluation. No emergency medical condition was identified. The patient was given return precautions and followup instructions. CT/MRI/US Diagnostic Results CT/MRI/US Diagnostic Results : Imaging Test Ordered: CT head Impression No acute findings. Specifically no intracranial bleed, mass effect or edema. See official report. Last Vital Signs Date Time Temp Pulse Resp B/P (MAP) Pulse Ox O2 Delivery O2 Flow Rate FiO2 05/04/20 10:22 89 15 Room Air 05/04/20 10:15 97.5 114/71 (85) 99 Status: improved Disposition: HOME, SELF-CARE Condition: Improved Carisa Zayas DO May 04, 2020 11:14
--- NOTE | 2020-05-04 12:24 | Diagnostic Imaging Report ---
Indications: Headache Technique: Spiral acquisitions obtained through the brain. Angled axial and coronal 5 x 5 mm slices were reconstructed. Total dose length product 992 mGycm. CTDI vol(s) 53 mGy. Dose reduction achieved using automated exposure control Comparison: 03/16/2019 Findings: Again demonstrated is considerable age-related enlargement of the ventricles and extra axial CSF spaces. There is again demonstrated a right high frontal medhat hole. 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 There is periventricular deep white matter low-attenuation, consistent with chronic microvascular ischemic change. Area of cortical encephalomalacia in the left high parietal lobe is again demonstrated, consistent with old infarct. No acute intracranial hemorrhage or edema. No mass effect nor midline shift. Otherwise normal ordoñez-white differentiation. Intact calvarium. Visualized orbits and sinuses are unremarkable. The mastoids are clear. Impression: Chronic and age-related changes. Negative for acute intracranial bleed or mass effect The CT scanner at [facility] is accredited by the [employer] and the scans are performed using protocols designed to limit radiation exposure to as low as reasonably achievable to attain images of sufficient resolution adequate for diagnostic evaluation.
[2020-05-04] MEDS ORDERED: ACETAMINOPHEN500 M3 ORAL (14:04)
[2020-05-04 14:17] VITALS: BP 110/72
== END 2020-05-04 14:18 | disposition home or self-care (01) ==
LOC: EMR 12:38
DX: R51 Headache (principal); I10 Essential (primary) hypertension; Z79.899 Other long term (current) drug therapy; E78.5 Hyperlipidemia, unspecified
CPT/HCPCS: 70450; 99284